=== PATIENT | male | born 1990 | race Caucasian/White ===

== ENCOUNTER → 2020-12-09 | Day surgery (SDC) | payer OTHER ==
[~2020-12-09] VITALS: Ht 167.6 cm; Wt 72.6 kg
[~2020-12-09] MED LIST: PERCOCET 5-3251 EACH PO
[2020-12-09 10:35] LABS: HCT 39.5 % (42.0-52.0); HGB 12.9 g/dl (13.2-18.0); MCH 30.4 pg (25.0-31.0); MCHC 32.7 g/dL (32.0-36.0); MCV 93.2 fL (78.0-100.0); RBC 4.24 M/uL (4.70-6.00); WBC 10.6 K/uL (4.0-10.5)
[2020-12-09 11:07] LABS: ALBUMIN 3.5 g/dL (3.4-5.0); BILIRUBIN - TOTAL 0.4 mg/dL (0.2-1.0); BUN/CREAT RATIO (CALC) 5.6 RATIO; CREATININE 0.9 mg/dL (0.67-1.17); GLOBULIN (CALCULATION) 3.6 g/dL; POTASSIUM 4.8 mmol/L (3.5-5.1); TOTAL PROTEIN 7.1 g/dL (6.4-8.2)
== END | disposition home or self-care (01) ==
LOC: FAS 07:00
PROVIDERS: Orthopaedic Surgery
DX: S83.512A Sprain of anterior cruciate ligament of left knee, initial encounter (principal); S83.242A Other tear of medial meniscus, current injury, left knee, initial encounter; M23.52 Chronic instability of knee, left knee; F17.210 Nicotine dependence, cigarettes, uncomplicated; Z79.891 Long term (current) use of opiate analgesic; X58.XXXA Exposure to other specified factors, initial encounter
CPT/HCPCS: 36415; 80053; C1713; J0690; J0735; J1100; J1170; J1885; J2250; J2370; J2405; J2704; J2795; J7120